=== PATIENT | female | born 1990 ===

== ENCOUNTER 2018-12-02 07:11 | Emergency (ER) | payer OTHER ==
--- NOTE | 2018-12-02 07:51 | UC ---
Complaint Female HPI - HPI Summary HPI Summary: ONSET YESTERDAY ON DYSURIA, FREQUENCY, URGENCY AND HEMATURIA. NO BACK PAIN, FEVER OR NAUSEA. DENIES ANY CHANCE OF . - History Of Current Complaint Chief Complaint: UCGU Stated Complaint: URINARY ISSUE Time Seen by Provider: 12/02/18 07:22 Hx Obtained From: Patient Hx Last Menstrual Period: 11/25/18 Onset/Duration: Gradual Onset, Lasting Days, Still Present Severity Initially: Moderate Severity Currently: Moderate Pain Intensity: 2 Pain Scale Used: 0-10 Numeric Character: Burning Aggravating Factor(s): Urination Alleviating Factor(s): Nothing Associated Signs And Symptoms: Negative: Vaginal Bleeding/Discharge, Nausea - Allergies/Home Medications Allergies/Adverse Reactions: Allergies Allergy/AdvReac Type Severity Reaction Status Date / Time acetaminophen Allergy Intermediate Nausea Verified 12/02/18 07:24 Home Medications: Home Medications l-Norgest/E.estradiol-E.estrad [Seasonique 0.15-0.03-0.01 Tab] 1 tab PO DAILY WITH MEAL 12/02/18 [History Confirmed 12/02/18] PMH/Surg Hx/FS Hx/Imm Hx Previously Healthy: Yes - Surgical History Surgical History: Yes Surgery Procedure, Year, and Place: right arm - Family History Known Family History: Positive: None - Social History Alcohol Use: None Substance Use Type: None Smoking Status (MU): Never Smoked Tobacco Review of Systems All Other Systems Reviewed And Are Negative: Yes Constitutional: Positive: Negative Respiratory: Positive: Negative Cardiovascular: Positive: Negative Gastrointestinal: Positive: Negative Genitourinary: Positive: Dysuria, Hematuria, Frequency, Urgency Physical Exam Triage Information Reviewed: Yes Appearance: Well-Appearing, No Pain Distress, Well-Nourished Vital Signs: Initial Vital Signs Temp 98.3 F 12/02/18 07:20 Pulse 59 12/02/18 07:20 Resp 18 12/02/18 07:20 BP 116/71 12/02/18 07:20 Pulse Ox 100 12/02/18 07:20 Laboratory Tests 12/02/18 07:30 POC Urine Color Light yellow POC Urine Clarity Slightly cloudy POC Urine pH 7.0 POC Ur Specif Miller 1.025 POC Urine Protein Negative POC Ur Glucose (UA) Negative POC Urine Ketones Negative POC Urine Blood 3+ A POC Urine Nitrite Negative POC Urine Bilirubin Negative POC Urine Urobilinogen 0.2 POC U Leukocyte Esteras Trace A Vital Signs Reviewed: Yes Eyes: Positive: Conjunctiva Clear ENT: Positive: Hearing grossly normal Neck: Positive: Supple Respiratory: Positive: No respiratory distress, No accessory muscle use Cardiovascular: Positive: Pulses Normal Abdomen Description: Positive: Nontender, Soft. Negative: CVA Tenderness (R), CVA Tenderness (L), Distended, Guarding Musculoskeletal: Positive: No Edema Neurological: Positive: Alert Psychological: Positive: Age Appropriate Behavior Skin: Negative: Rashes Complaint Female Dx - Differential Dx/Diagnosis Provider Diagnosis: UTI (urinary tract infection) Discharge ED - Sign-Out/Discharge Documenting (check all that apply): Patient Departure All imaging exams completed and their final reports reviewed: No Studies - Discharge Plan Condition: Stable Disposition: HOME Prescriptions: Sulfamethox/Trimethoprim DS* [Bactrim DS 800/160 TAB*] 1 tab PO BID #10 tab Patient Education Materials: Urinary Tract Infection in Women (ED) Referrals: [facility] [Outside] Additional Instructions: CALL THE NUMBER BELOW FOR ASSISTANCE IN ESTABLISHING WITH A PCP An additional resource available to assist in finding the appropriate physician for your health care needs is [facility] ([facility]). You may contact them by calling [phone]. - Billing Disposition and Condition Condition: STABLE Disposition: Home
== END 2018-12-02 07:48 | disposition home or self-care (01) ==
LOC: UCEAST 07:11
DX: N39.0 Urinary tract infection, site not specified (principal)
CPT/HCPCS: 81003; 87077; 87086; 87186; 99212; G0463